=== PATIENT | female | born 1950 | race Caucasian/White ===

== ENCOUNTER 2022-02-14 11:36 | Emergency (ER) | payer MEDICARE, OTHER, SELFPAY ==
[2022-02-14 11:43] VITALS: BP 108/62; PULSE 110; RESP 16; TEMP 36.6; O2SAT 100
--- NOTE | 2022-02-14 12:07 | ED.URI ---
HPI - URI/Sore Throat General Chief Complaint: Upper Respiratory Infection Stated Complaint: SORE THROAT Time Seen by Provider: 02/14/22 12:07 Source: patient and RN notes reviewed Mode of arrival: ambulatory Limitations: no limitations History of Present Illness HPI Narrative: 72 y/o female presented for c/o sore throat for 2 days. Endorses headache and body aches, mild cough and nasal congestion. Taking over the counter meds for symptoms without relief. She is concerned for strep stating the throat pain was more intense today. Denies sob, wheezing, n/v/d/f/c. Not boosted for covid, she took negative home covid test yesterday. MD elicited complaint: cough Related Data Allergies Allergy/AdvReac Type Severity Reaction Status Date / Time No Known Allergies Allergy Unverified 12/31/19 10:54 Review of Systems Review of Systems: CONSTITUTIONAL: denies malaise, chills, sweats, fever EYES: Denies visual changes, redness, or discharge ENT: Reports sore throat rhinorrhea, congestion, denies sinus pain, otalgia, CARDIOVASCULAR: Denies chest pain, palpitations, edema RESPIRATORY: Reports cough, post nasal drainage. Denies dyspnea GASTROINTESTINAL: Denies abdominal pain, nausea, vomiting, diarrhea SKIN: Denies rash or itching MUSCULOSKELETAL: denies myalgia NEUROLOGIC: Denies headache PMF Past Medical History Medical History (Updated 02/14/22 @ 12:14 by Janet Webb APRN) Anxiety Cataract 2018 Apir and March Dyslipidemia Essential (primary) hypertension Surgical History Surgical History History of ankle surgery aug, 2019 History of tonsillectomy and adenoidectomy 1961 Social History Social History Smoking status: Former smoker Second hand tobacco smoke exposure: No Smoking end date: 10/29/94 Alcohol intake: current Alcohol use details: consumes 2 drinks of vodka daily Substance use: never Substance use type: does not use Exam Narrative: GENERAL: Ill-appearing, nontoxic HEAD: Normocephalic EYES: conjunctivae clear ENT: Mucous membranes moist. TM pearly rolle with dull light reflex bilaterally; no tragal tenderness. Hoarse voice, Oropharynx erythematous without lesions or exudate, tonsils absent; no drooling, no hoarseness, no trismus, uvula midline. No tripod positioning, muffled voice, soft palate or pharyngeal wall bulging NECK: Supple. No lymphadenopathy CHEST: Clear to auscultation, breath sounds equal. No wheezing, rhonchi, rales, or stridor. No respiratory distress, speaks in full sentences. HEART: Regular rate and rhythm. No murmur heard. SKIN: Warm, dry, no rash. NEURO: Alert and oriented x3. PSYCH: Normal mood and affect Course Course Emergency Course: Patient is aware of diagnosis, understands and agrees to treatment plan. Anticipatory guidance given. Patient agrees to follow-up as directed and is aware of reasons to seek care at the emergency department. Portions of this record may have been created with voice recognition software Level of Care: Express Care Visit Vital Signs Vital signs: Vital Signs Temperature 97.8 F 02/14/22 11:43 Pulse Rate 110 H 02/14/22 11:43 Respiratory Rate 16 02/14/22 11:43 Blood Pressure 108/62 02/14/22 11:43 Pulse Oximetry 100 02/14/22 11:43 Temperature 97.8 F 02/14/22 11:43 Pulse Rate 110 H 02/14/22 11:43 Respiratory Rate 16 02/14/22 11:43 Blood Pressure 108/62 02/14/22 11:43 Pulse Oximetry 100 02/14/22 11:43 reviewed MDM - URI/Sore Throat MDM Narrative Medical decision making narrative: strep neg; reviewed with pt Differential Diagnosis Differential diagnosis: Likely upper respiratory infection, sinusitis and viral infection Lab Data Attestation: I reviewed the patient's lab results. Labs: Strep Screen Presumptive Negative *(Referen
== END 2022-02-14 12:19 | disposition home or self-care (01) ==
PROVIDERS: Emergency Provider Nurse Practitioner Family; PCP Family Medicine
DX: J02.9 Acute pharyngitis, unspecified (principal); J30.9 Allergic rhinitis, unspecified; Z87.891 Personal history of nicotine dependence; E78.5 Hyperlipidemia, unspecified; I10 Essential (primary) hypertension
CPT/HCPCS: 87081; 87880; 99213; G0463